=== PATIENT | male | born 1985 | race Two or more races ===

== ENCOUNTER 2021-11-08 11:44 | Emergency (ER) | payer SELFPAY ==
[~2021-11-08] VITALS: Ht 167.6 cm; Wt 68.0 kg
[2021-11-08 12:00] VITALS: BP 117/62
== END 2021-11-08 13:46 | disposition home or self-care (01) ==
LOC: ER 11:44
DX: S71.111A Laceration without foreign body, right thigh, initial encounter (principal); W26.0XXA Contact with knife, initial encounter; Y93.89 Activity, other specified; Y92.89 Other specified places as the place of occurrence of the external cause; Y99.8 Other external cause status
CPT/HCPCS: 12002